=== PATIENT | female | born 1960 | race Caucasian/White ===

== ENCOUNTER → 2016-11-21 | Outpatient (CLI) | payer BC ==
[~2016-11-21] MED LIST: ASPIRIN EC81 MG PO; CAPOZIDE 25/15 T1 EA PO; ELAVIL 25 MG TA25 MG PO; GLUCOTROL5 MG PO; HUMALOG100 UNIT/1 SQ; HYDROCHLOROTHIA25 MG PO; KLONOPIN TAB 00.5 MG PO; LISINOPRIL40 MG PO; METFORMIN HCL1000 MG PO; NEURONTIN 400400 MG PO; SYNTHROID300 MCG PO; TOUJEO SC; ULTRAM50 MG PO
[2016-11-21 07:48] LABS: HEMOGLOBIN 12.6 gm/dl (12.3-15.3); WHITE BLOOD COUNT 6.6 K/UL (4.5-11.0)
[2016-11-21 08:35] LABS: BUN/CREATININE RATIO 38 (0-10)
== END ==
LOC: LAB 06:33
PROVIDERS: Family Medicine
DX: E11.65 Type 2 diabetes mellitus with hyperglycemia (principal); E03.9 Hypothyroidism, unspecified
CPT/HCPCS: 36415; 80053; 80061; 83036; 84443; 85027

== ENCOUNTER → 2016-11-23 | Outpatient (CLI) | payer BC | LOC: KOH-I 08:00 | DX: Z13.820 Encounter for screening for osteoporosis (principal); M85.852 Other specified disorders of bone density and structure, left thigh | CPT/HCPCS: 77080 ==

== ENCOUNTER 2016-12-12 23:23 | Observation (INO) | payer BC ==
[~2016-12-12] VITALS: Ht 165.1 cm; Wt 70.8 kg
[~2016-12-12 23:23] MED LIST changes: -ASPIRIN EC81 MG PO; -HUMALOG100 UNIT/1 SQ; -NEURONTIN 400400 MG PO
[2016-12-13 00:31] LABS: HEMOGLOBIN 11.1 gm/dl (12.3-15.3); RED BLOOD COUNT 3.59 M/UL (4.00-5.10); WHITE BLOOD COUNT 7.1 K/UL (4.5-11.0)
[2016-12-13 00:55] LABS: BUN/CREATININE RATIO 20 (0-10)
[2016-12-13] MEDS ORDERED: NEURONTIN 400400 MG PO (03:41)
[2016-12-13] MEDS ORDERED: LISINOPRIL40 MG PO (03:41)
[2016-12-13] MEDS ORDERED: HUMALOG100 UNIT/1 SQ (03:42)
[2016-12-13] MEDS ORDERED: ASPIRIN EC81 MG PO (16:54)
== END 2016-12-13 17:33 | disposition home or self-care (01) ==
LOC: ER1 23:23 → ZEROF 12-13 01:28 → M/S 12-13 01:28
PROVIDERS: Emergency Medicine; ADMIT Internal Medicine
DX: R07.9 Chest pain, unspecified (principal); E11.9 Type 2 diabetes mellitus without complications; R11.2 Nausea with vomiting, unspecified; I10 Essential (primary) hypertension; E78.5 Hyperlipidemia, unspecified; E03.9 Hypothyroidism, unspecified; F41.9 Anxiety disorder, unspecified; I25.10 Atherosclerotic heart disease of native coronary artery without angina pectoris; Z79.82 Long term (current) use of aspirin; Z79.899 Other long term (current) drug therapy; Z90.710 Acquired absence of both cervix and uterus; Z90.49 Acquired absence of other specified parts of digestive tract; Z88.2 Allergy status to sulfonamides; Z88.6 Allergy status to analgesic agent
CPT/HCPCS: 36415; 71010; 80053; 82550; 82553; 83735; 83874; 84439; 84443; 84484; 85025; 93005; 96372; 96374; 99285; G0378; J1650; J7030

== ENCOUNTER → 2020-09-18 | Outpatient (CLI) | payer BC ==
[~2020-09-18] MED LIST changes: +ACYCLOVIR400 MG PO; +ASPIRIN EC81 MG PO; +BENTYL 10MG CAP10 MG PO; +CYMBALTA60 MG PO; +DICLOFENAC SODI50 MG PO; +HUMALOG100 UNIT/1 SQ; +IBUPROFEN600 MG PO; +INDERAL TAB 1010 MG PO; +LEVOXYL200 MCG PO; +LIDOCAINE PAIN1 EACH TP; +LIPITOR TAB 2020 MG PO; +NEURONTIN 400400 MG PO; +NORVASC 5 MG TAB5 MG PO; +NOVOLOG 10100 UNITS1 INJ; +OMNICEF 300 MG300 MG PO; +PROTONIX 40 MG40 M1 PO; +SUCRALFATE1 GM/10 ML PO; +SYNTHROID 50 M50 MCG PO; +TRESIBA100 UNIT/1 SQ; +VICTOZA 3-0.6 MG/0.1 SQ; +ZANTAC150 MG PO; +ZOFRAN4 MG PO; +ZOLOFT50 MG PO; +ZOVIRAX 200 MG200 MG PO
== END ==
LOC: LAB 15:45
DX: E11.21 Type 2 diabetes mellitus with diabetic nephropathy (principal)
CPT/HCPCS: 84443

== ENCOUNTER → 2020-09-25 | Outpatient (CLI) | payer BC | LOC: MAMO 11:04 | DX: Z12.31 Encounter for screening mammogram for malignant neoplasm of breast (principal) | CPT/HCPCS: 77063; 77067 ==

== ENCOUNTER → 2020-11-03 | Outpatient (CLI) | payer BC ==
[2020-11-03 08:39] LABS: HEMOGLOBIN 13.8 gm/dl (12.3-15.3); RED BLOOD COUNT 4.17 M/UL (4.00-5.10); WHITE BLOOD COUNT 5.4 K/UL (4.5-11.0)
[2020-11-03 08:55] LABS: BUN/CREATININE RATIO 22 (0-10)
[2020-11-04 11:14] LABS: CREATININE, URINE 44.1 mg/dL (Not Estab.)
== END ==
LOC: LAB 08:05
PROVIDERS: Family Medicine
DX: D50.9 Iron deficiency anemia, unspecified (principal); E03.9 Hypothyroidism, unspecified; E78.2 Mixed hyperlipidemia; E11.42 Type 2 diabetes mellitus with diabetic polyneuropathy; I10 Essential (primary) hypertension
CPT/HCPCS: 36415; 80053; 80061; 82043; 82570; 84439; 84443; 85025

== ENCOUNTER → 2020-11-10 | Outpatient (CLI) | payer BC ==
[2020-11-10 15:00] LABS: BUN/CREATININE RATIO 27 (0-10)
== END ==
LOC: LAB 11:16
PROVIDERS: Nurse Practitioner Family
DX: I10 Essential (primary) hypertension (principal)
CPT/HCPCS: 36415; 80048

== ENCOUNTER → 2020-11-13 | Outpatient (CLI) | payer BC, OTHER | LOC: DTC 12:58 | DX: E11.65 Type 2 diabetes mellitus with hyperglycemia (principal); E11.42 Type 2 diabetes mellitus with diabetic polyneuropathy | CPT/HCPCS: G0108 ==

== ENCOUNTER → 2021-01-01 | Outpatient (CLI) | payer BC, OTHER ==
[2021-01-01 15:10] LABS: BUN/CREATININE RATIO 20 (0-10)
== END ==
LOC: LAB 13:49
PROVIDERS: Nurse Practitioner Family
DX: I10 Essential (primary) hypertension (principal)
CPT/HCPCS: 36415; 80048

== ENCOUNTER → 2021-01-06 | Outpatient (CLI) | payer BC, OTHER ==
[2021-01-06 10:00] LABS: BUN/CREATININE RATIO 31 (0-10)
[2021-01-07 10:14] LABS: CREATININE, URINE 52.4 mg/dL (Not Estab.)
== END ==
LOC: LAB 08:23
PROVIDERS: Internal Medicine
DX: E11.21 Type 2 diabetes mellitus with diabetic nephropathy (principal)
CPT/HCPCS: 36415; 80048; 80061; 82043; 82570; 82607; 83036; 84443

== ENCOUNTER → 2021-01-18 | Outpatient (CLI) | payer BC, OTHER | LOC: RAD 16:58 | DX: M25.551 Pain in right hip (principal); M16.11 Unilateral primary osteoarthritis, right hip | CPT/HCPCS: 73502 ==

== ENCOUNTER → 2021-01-21 | Outpatient (CLI) | payer BC, OTHER | LOC: RAD 08:24 | DX: M54.16 Radiculopathy, lumbar region (principal); M48.52XA Collapsed vertebra, not elsewhere classified, cervical region, initial encounter for fracture | CPT/HCPCS: 72100 ==

== ENCOUNTER → 2021-01-27 | Outpatient (CLI) | payer OTHER, BC | LOC: MRI 13:05 | DX: S22.080A Wedge compression fracture of T11-T12 vertebra, initial encounter for closed fracture (principal) | CPT/HCPCS: 72146; 72148 ==

== ENCOUNTER → 2021-02-23 | Outpatient (CLI) | payer BC, OTHER ==
[2021-02-23 14:24] LABS: HEMOGLOBIN 12.5 gm/dl (12.3-15.3); RED BLOOD COUNT 3.81 M/UL (4.00-5.10)
[2021-02-23 14:51] LABS: BUN/CREATININE RATIO 19 (0-10)
[2021-02-24 15:14] LABS: A/G RATIO 0.9 (0.7-1.7); ALBUMIN 3.8 g/dL (2.9-4.4); ALPHA-1-GLOBULIN 0.2 g/dL (0.0-0.4); BETA GLOBULIN 1.3 g/dL (0.7-1.3); GAMMA GLOBULIN 1.8 g/dL (0.4-1.8); GLOBULIN, TOTAL 4.3 g/dL (2.2-3.9); M-SPIKE Not Observed g/dL (Not Observed); PROTEIN, TOTAL, SERUM 8.1 g/dL (6.0-8.5)
== END ==
LOC: LAB 13:15
PROVIDERS: Family Medicine
DX: D50.9 Iron deficiency anemia, unspecified (principal); E03.9 Hypothyroidism, unspecified; E78.2 Mixed hyperlipidemia; I10 Essential (primary) hypertension; K21.9 Gastro-esophageal reflux disease without esophagitis
CPT/HCPCS: 36415; 80053; 84155; 84165; 85025

== ENCOUNTER → 2021-03-04 | Outpatient (CLI) | payer BC ==
[2021-03-04 14:02] LABS: HEMOGLOBIN 12.6 gm/dl (12.3-15.3); RED BLOOD COUNT 3.78 M/UL (4.00-5.10); WHITE BLOOD COUNT 4.6 K/UL (4.5-11.0)
[2021-03-04 14:34] LABS: BUN/CREATININE RATIO 21 (0-10)
== END ==
LOC: LAB 13:25
PROVIDERS: Family Medicine
DX: K74.60 Unspecified cirrhosis of liver (principal); D50.9 Iron deficiency anemia, unspecified; E03.9 Hypothyroidism, unspecified; E78.2 Mixed hyperlipidemia; K21.9 Gastro-esophageal reflux disease without esophagitis
CPT/HCPCS: 36415; 80053; 82105; 82140; 83036; 84439; 84443; 85025; 85610; 85730

== ENCOUNTER → 2021-03-05 | Outpatient (CLI) | payer BC | LOC: US 09:14 | DX: D50.9 Iron deficiency anemia, unspecified (principal); E03.9 Hypothyroidism, unspecified; E78.2 Mixed hyperlipidemia; K21.9 Gastro-esophageal reflux disease without esophagitis; K74.60 Unspecified cirrhosis of liver; Z90.49 Acquired absence of other specified parts of digestive tract | CPT/HCPCS: 36415; 76705; 80061 ==

== ENCOUNTER → 2021-11-25 | Outpatient (CLI) | payer BC ==
[2021-11-25 18:58] LABS: HEMOGLOBIN 13.7 gm/dl (12.3-15.3); RED BLOOD COUNT 4.04 M/UL (4.00-5.10); WHITE BLOOD COUNT 7.7 K/UL (4.5-11.0)
[2021-11-25 19:13] LABS: BUN/CREATININE RATIO 23 (0-10)
== END ==
LOC: LAB 18:24
PROVIDERS: Physician Assistant
DX: K74.60 Unspecified cirrhosis of liver (principal); R14.0 Abdominal distension (gaseous)
CPT/HCPCS: 80053; 82105; 82140; 85025; 85610

== ENCOUNTER → 2021-12-03 | Outpatient (CLI) | payer BC | LOC: CT 12:37 | DX: K74.60 Unspecified cirrhosis of liver (principal); R14.0 Abdominal distension (gaseous); R10.13 Epigastric pain; E11.40 Type 2 diabetes mellitus with diabetic neuropathy, unspecified; N20.0 Calculus of kidney | CPT/HCPCS: 36415; 80061; 82607; 84443; Q9967 ==